=== PATIENT | male | born 1960 | race African-American/Black ===

== ENCOUNTER 2016-10-23 06:22 | Emergency (ER) | payer OTHER ==
[~2016-10-23] VITALS: Ht 175.3 cm; Wt 118.0 kg
[~2016-10-23 06:22] MED LIST: ASPI81 PO; ATEN1TAB73; LEVO.025 PO; MELO15TA2 PO; METF850T PO; QUIN5 PO; ROBA750T3 PO; TYLE3 PO
[2016-10-23 06:26] VITALS: BP 152/80; PULSE 88; RESP 16; TEMP 97.8; O2SAT 99
[2016-10-23] MEDS ORDERED: ATEN25TA PO (06:31)
[2016-10-23] MEDS ORDERED: METF850T PO (06:31)
[2016-10-23] MEDS ORDERED: LEVO25TA4 PO (06:31)
[2016-10-23] MEDS ORDERED: HYDR-3533 PO (06:39)
[2016-10-23] MEDS ORDERED: DICL75TA PO (06:39)
[2016-10-23] MEDS ORDERED: NAPROXEN 500 MG TAB PO ONE (06:45)
[2016-10-23] MEDS ORDERED: ACETAMINOPHEN/HYDROcodone 325 MG/5 MG TAB PO ONE (06:45)
--- NOTE | 2016-10-23 06:48 | PD ---
HPI Chief Complaint: Pain: Acute or Chronic Time Seen by Provider: 06:43 Travel History International Travel<30 days: No Contact w/Intl Traveler<30days: No Traveled to known affect area: No History of Present Illness HPI 56-year-old black male presents to emergency Department with complaints of exacerbation of chronic left knee pain. He states that he has had knee pain for many years. He is had arthroscopy with some temporary relief. He was told that he would probably need a knee replacement. 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 The pain in his left knee has gotten worse over last few days. He does not recall any recent injury. He denies any locking or giving out. He states the pain is global in his knee. Worse with standing or walking. There is no alleviating factors. PFSH Past Medical History Narrative Medical Hypertension, diabetes, hypothyroidism, chronic knee pain Diabetes: Yes Patient Takes Glucophage: Yes Diminished Hearing: No Endocrine: Yes (hypothyroid) Hypertension: Yes Tetanus Vaccination: Unknown Influenza Vaccination: No Past Surgical History Narrative Surgical Left knee arthroscopy, herniorrhaphy Social History Alcohol Use: Yes (socially) Tobacco Use: Yes Substance Use: No Allergies-Medications (Allergen,Severity, Reaction): Coded Allergies: No Known Allergies (Verified , 10/23/16) Reported Meds & Prescriptions Reported Meds & Active Scripts Active Lortab (Hydrocodone-Acetaminophen) 5-325 Mg Tab 1 Tab PO Q8HR PRN Diclofenac Sodium DR (Diclofenac Sodium) 75 Mg Tabdr 75 Mg PO BID Reported Levothyroxine (Levothyroxine Sodium) 25 Mcg Tab 25 Mcg PO DAILY Metformin (Metformin HCl) 850 Mg Tab 850 Mg PO BIDPC With meals Atenolol 25 Mg Tab 25 Mg PO BID Review of Systems Except as stated in HPI: all other systems reviewed are Neg Musculoskeletal: Positive: Arthralgias, Limited ROM, Edema, Pain, No: Myalgias , Weakness Physical Exam Narrative GENERAL: This is a well-nourished, well-developed patient, in no apparent distress. SKIN: No rashes, ecchymoses or lesions. Warm and dry. HEAD: Atraumatic. Normocephalic. EYES: PERRL, EOMI, no discharge or injection. No scleral icterus. EARS: Clear NOSE: Nasal turbinates appear normal. THROAT: Mucosa pink and moist. Airway patent. NECK: Trachea midline. supple, moves head freely. LUNGS: Clear to auscultation. CV: Regular in rhythm. ABDOMEN: Soft nontender. EXT: No clubbing cyanosis or edema. Examination of the left lower extremity reveals diffuse pain in the knee. Mild arthritic changes. No joint effusion. No erythema or warmth. He has full range of motion. No anterior posterior draw. No BOM lateral collateral ligament instability. He does complain of pain with range of motion. She has intact sensation with good distal pulses. Ambulates with a mildly antalgic gait. Data Data Last Documented VS Vital Signs Date Time Temp Pulse Resp B/P Pulse Ox O2 Delivery O2 Flow Rate FiO2 10/23/16 06:26 97.8 88 16 152/80 99 Orders Acetamin-Hydrocod 325-5 Mg ([place] 5-325 (10/23/16 06:45) Naproxen (Naprosyn) (10/23/16 06:45) MDM Medical Decision Making Medical Screen Exam Complete: Yes Emergency Medical Condition: Yes Medical Record Reviewed: Yes Differential Diagnosis MDM: High Differential diagnoses: Fracture, sprain, strain, dislocation, contusion, neurovascular injury Narrative Course Patient's given Lortab 5 and Naprosyn 500 mg by mouth. This acute exacerbation of chronic left knee pain Diagnosis Primary Impression: acute exacerbation of chronic left knee pain Patient Instructions: Narcotic given in the ED, General Instructions Departure Forms: Tests/Procedures, Work Release Special Instructions: No work 2 days. Additional Instructions: Rest. Elevation. Ice packs for the next 3 days. Limit weightbearing. Medications as directed Follow-up with an orthopedist or your doctor in one week. Return to the ER if any problems Med/Other Pt SpecificInfo: Prescription(s) given Scripts Hydrocodone-Acetaminophen (Lortab)5-325 Mg Tab1 Tab PO Q8HR PRN (PAIN) #12 TAB Prov:Erin Lobato MD 10/23/[address] 75 Mg Tabdr75 Mg PO BID #30 TAB Prov:Erin Lobato MD 10/23/16 Disposition: 01 DISCHARGE HOME Condition: Stable Frank Hassan Oct 23, 2016 06:48
== END 2016-10-23 07:06 | disposition home or self-care (01) ==
LOC: NEPK 06:22
DX: M25.562 Pain in left knee (principal); G89.29 Other chronic pain
CPT/HCPCS: 99283

== ENCOUNTER 2017-02-23 06:58 | Emergency (ER) | payer OTHER ==
[~2017-02-23] VITALS: Ht 172.7 cm; Wt 115.5 kg
[~2017-02-23 06:58] MED LIST changes: -ASPI81 PO; -ATEN1TAB73; +ATEN25TA PO; +DICL75TA PO; +HYDR-3533 PO; -LEVO.025 PO; +LEVO25TA4 PO; -MELO15TA2 PO; -QUIN5 PO; -ROBA750T3 PO; -TYLE3 PO
[2017-02-23 07:01] VITALS: BP 144/83; PULSE 92; RESP 20; TEMP 98.3; O2SAT 99
[2017-02-23] MEDS ORDERED: ASPI81CH CHEW (07:49)
[2017-02-23] MEDS ORDERED: LISI-515 PO (07:49)
[2017-02-23] MEDS ORDERED: HYDR-3583 PO (07:50)
[2017-02-23] MEDS ORDERED: BACL10TA PO (07:50)
--- NOTE | 2017-02-23 07:56 | PD ---
HPI Chief Complaint: Medication Refill Request Time Seen by Provider: 07:43 Travel History International Travel<30 days: No Contact w/Intl Traveler<30days: No Traveled to known affect area: No History of Present Illness HPI 56-year-old male presents to the emergency department requesting refill on hydrocodone 10 mg for neuropathy, arthritis, and bilateral knee pain. He has not taken this medication for 3-4 weeks. This primary care provider will not refill his medications and he has been told he needs to see a pain specialist. He has no emergent medical complaints today. No known allergies. No other modifying factors or associated signs and symptoms. History Past Medical Histgory Hx Chemotherapy: No Social History Alcohol Use: Yes (socially) Tobacco Use: Yes Allergies-Medications (Allergen,Severity, Reaction): Coded Allergies: No Known Allergies (Verified , 10/23/16) Reported Meds & Prescriptions Reported Meds & Active Scripts Active Reported Hydrocodone-Acetaminophen 10-325 mg Tab 1 Tab PO Q6H PRN Baclofen 10 Mg Tab 10 Mg PO TID Aspirin 81 Mg Chew 81 Mg CHEW DAILY Lisinopril 20 Mg Tab 20 Mg PO DAILY Levothyroxine (Levothyroxine Sodium) 25 Mcg Tab 25 Mcg PO DAILY Metformin (Metformin HCl) 850 Mg Tab 850 Mg PO BIDPC With meals Atenolol 25 Mg Tab 25 Mg PO BID Review of Systems Except as stated in HPI: all other systems reviewed are Neg Physical Exam Narrative GENERAL: Well-nourished, well-developed male patient, in no acute distress SKIN: Warm and dry. HEAD: Atraumatic. Normocephalic. EYES: Pupils equal and round. No scleral icterus. No injection or drainage. ENT: Mucosa pink and moist. Airway patent. NECK: Trachea midline. CARDIOVASCULAR: Regular rate. RESPIRATORY: No accessory muscle use. GASTROINTESTINAL: Obese. MUSCULOSKELETAL: No obvious deformities. No clubbing. No cyanosis. No edema. Ambulatory with normal gait with assistance with a cane. NEUROLOGICAL: Awake and alert. Oriented 3. No obvious cranial nerve deficits. Motor grossly within normal limits. Normal speech. PSYCHIATRIC: Appropriate mood and affect; insight and judgment normal. Data Data Last Documented VS Vital Signs Date Time Temp Pulse Resp B/P (MAP) Pulse Ox O2 Delivery O2 Flow Rate FiO2 02/23/17 07:01 98.3 92 20 144/83 (103) 99 Room Air [facility] Medical Screen Exam Complete: Yes Emergency Medical Condition: No Differential Diagnosis Medication refill Narrative Course 56-year-old male requesting medication refill for hydrocodone. Vital signs are stable and the patient is stable for outpatient follow-up and treatment. The patient has no urgent or emergent medical complaints. There is no emergent or urgent medical need at this time. I instructed the patient to follow up with their primary care provider. A medical screening exam was performed: At the time of evaluation the presenting medical condition was determined not to be of an emergent nature. The patient was given the option of receiving additional care, but declined. Patient was given options for additional community resources from which to obtain care. The Patient Has Been advised to seek medical attention for their presenting complaint. The patient has been advised to return to the ER at any time if an emergent condition develops. Primary Impression: Encounter for medical screening examination Condition: Stable Bren Hardin [facility] Feb 23, 2017 07:56
== END 2017-02-23 10:14 | disposition left against medical advice (07) ==
LOC: NEPK 06:58
DX: M25.561 Pain in right knee (principal); M25.562 Pain in left knee
CPT/HCPCS: 99281